=== PATIENT | female | born 1980 | race Caucasian/White ===

== ENCOUNTER 2021-11-11 13:44 | Outpatient (CLI) | payer BC, SELFPAY ==
[2021-11-11 21:36] LABS: Albumin* 4.1 g/dL (3.3-5.0)
[2021-11-11 21:37] LABS: Chloride* 107 mmol/L (96-114); Potassium* 4.3 mmol/L (3.6-5.1); Sodium* 134 mmol/L (135-149)
[2021-11-11 21:39] LABS: Aspartate Amino Transferase* 25 U/L (12-35); Bilirubin Total* 0.3 mg/dL (0.1-1.5); Carbon Dioxide* 21 mmol/L (20-32); Cholesterol* 176 mg/dL (90-199); Creatinine* 0.9 mg/dL (0.5-1.5); Estimated Glomerular Filt Rate 83 ml/min; Total Protein* 6.9 g/dL (6.0-8.3)
[2021-11-11 21:40] LABS: Alanine Aminotransferase* 24 U/L (4-35); Alkaline Phosphatase* 91 U/L (40-150); Blood Urea Nitrogen* 20 mg/dL (5-24); Calcium* 9.3 mg/dL (8.4-10.6); Glucose* 92 mg/dL (60-115); HDL Cholesterol* 42 mg/dL (>=50); LDL Cholesterol Calculated 112 mg/dL (<100); Triglycerides* 111 mg/dL (40-149)
[2021-11-13 19:15] LABS: Vitamin D, 1,25-Dihydroxy 62.1 pg/mL (19.9-79.3)
== END 2021-11-11 13:45 | disposition home or self-care (01) ==
PROVIDERS: PCP Physician Assistant Medical; Visit Provider Physician Assistant Medical
DX: F41.9 Anxiety disorder, unspecified (principal); D50.9 Iron deficiency anemia, unspecified; F32.A Depression, unspecified; Z13.6 Encounter for screening for cardiovascular disorders; Z13.29 Encounter for screening for other suspected endocrine disorder
CPT/HCPCS: 80053; 80061; 82652; 84443

== ENCOUNTER 2021-11-24 07:02 | Outpatient (CLI) | payer BC, SELFPAY ==
--- NOTE | 2021-11-24 07:15 | CRLHL7_ITS ---
For Patients: As a result of the Century Cures Act, medical imaging exams and procedure reports are released immediately into your electronic medical record. You may view this report before your referring provider. If you have questions, please contact your health care provider. CLINICAL HISTORY: EXCESSIVE AND FREQUENT MENSTRUATION TECHNIQUE: 2D leon scale and color Doppler images were acquired of the pelvis using a transvaginal approach. FINDINGS: On transvaginal imaging, the myometrium has a heterogeneous echotexture. The uterus measures 7.2 x 4.7 x 4.8 cm. Right mid intramural fibroid is present measuring 1.9 x 2.1 x 2.0 cm. The endometrial lining appears normal and measures 6 mm in thickness. The left ovary measures 2.5 x 1.3 x 2.0 cm in size and the right ovary measures 3.6 x 2.0 x 1.6 cm. The ovaries demonstrate normal arterial and venous blood flow on color Doppler analysis. There are no suspicious fluid collections within the cul-de-sac. IMPRESSION: Endometrial thickness 6 millimeters. 2.1 cm intramural fibroid. Dictated by Tomi Lee MD @ 11/24/2021 8:40:41 AM (Electronically Signed)
== END 2021-11-24 07:03 | disposition home or self-care (01) ==
LOC: US 07:03
PROVIDERS: PCP Physician Assistant Medical; Visit Provider Registered Nurse
DX: N93.9 Abnormal uterine and vaginal bleeding, unspecified (principal); R93.89 Abnormal findings on diagnostic imaging of other specified body structures; D25.1 Intramural leiomyoma of uterus
CPT/HCPCS: 76830

== ENCOUNTER 2021-12-01 09:25 | Outpatient (CLI) | payer BC, SELFPAY ==
--- NOTE | 2021-12-01 | CRLHL7_ITS ---
For Patients: As a result of the Century Cures Act, medical imaging exams and procedure reports are released immediately into your electronic medical record. You may view this report before your referring provider. If you have questions, please contact your health care provider. PLEASE SEE BILATERAL DIAGNOSTIC MAMMOGRAM OF SAME DAY. RALPH/Dictated by: Tomi Lee MD @ 12/01/2021 11:51:00 AM (Electronically Signed)
--- NOTE | 2021-12-01 09:45 | CRLHL7_ITS ---
For Patients: As a result of the Century Cures Act, medical imaging exams and procedure reports are released immediately into your electronic medical record. You may view this report before your referring provider. If you have questions, please contact your health care provider. BILATERAL DIAGNOSTIC MAMMOGRAM WITH COMPUTER-AIDED DETECTION AND TOMOSYNTHESIS CLINICAL HISTORY: LEFT breast pain. COMPARISON: None. TECHNIQUE: Digital BILATERAL mammogram in 4 projections. Computer-aided detection and tomosynthesis were used. Real-time ultrasound imaging of LEFT breast with imaging documentation. BREAST COMPOSITION: The breasts are heterogeneously dense, which may obscure small masses FINDINGS: 3D CC/MLO mammogram submitted BILATERALLY. Normal fibroglandular tissue is noted. No solid masses or architectural distortion. No adenopathy or suspicious calcifications. Targeted LEFT breast ultrasound performed in the area of concern, upper outer quadrant LEFT breast, 1 o`clock 1-8 cm from the nipple. Normal fibroglandular tissue noted. No fibrocystic change or solid masses. IMPRESSION: Normal BILATERAL mammograms and targeted LEFT breast ultrasound. No evidence of malignancy. RECOMMENDATIONS: Annual BILATERAL screening mammography. BI-RADS Category 2: Benign Results and recommendations discussed with the patient. Dictated by Tomi Lee MD @ 12/01/2021 11:51:31 AM/yobani RALPH/Dictated by: Tomi Lee MD @ 12/01/2021 11:51:00 AM (Electronically Signed)
== END 2021-12-01 09:26 | disposition home or self-care (01) ==
LOC: MAMMO 09:25
PROVIDERS: PCP Physician Assistant Medical; Visit Provider Registered Nurse
DX: N64.4 Mastodynia (principal)
CPT/HCPCS: 76642; 77066; G0279

== ENCOUNTER 2021-12-29 11:56 | Outpatient (CLI) | payer BC, SELFPAY | END 2021-12-29 11:57 | disposition home or self-care (01) | PROVIDERS: PCP Physician Assistant Medical; Visit Provider Obstetrics & Gynecology | DX: R68.82 Decreased libido (principal) | CPT/HCPCS: 84270; 84402; 84403 ==

== ENCOUNTER 2022-04-26 12:25 | Outpatient (CLI) | payer BC, SELFPAY ==
[2022-04-26 14:25] LABS: Uric Acid* 4.7 mg/dL (2.2-8.4)
[2022-04-28 02:05] LABS: Rheumatoid Factor <10 IU/mL (0-14)
== END 2022-04-26 12:26 | disposition home or self-care (01) ==
PROVIDERS: PCP Physician Assistant Medical; Visit Provider Physician Assistant Medical
DX: M25.50 Pain in unspecified joint (principal)
CPT/HCPCS: 84550; 86200; 86431; 86618

== ENCOUNTER 2022-06-24 14:08 | Outpatient (REF) | payer BC, SELFPAY ==
[2022-06-26 23:51] LABS: Complement Component 3 141 mg/dL (90-180); Complement Component 4 34 mg/dL (10-40)
[2022-06-27 12:39] LABS: Scleroderma (Scl-70) (ENA) IgG 0 AU/mL (0-40); Smith (ENA) Antibody, IgG 3 AU/mL (0-40)
== END 2022-06-24 14:09 | disposition home or self-care (01) ==
LOC: NPINS 14:08
PROVIDERS: PCP Physician Assistant Medical; Visit Provider Internal Medicine Rheumatology
DX: M13.0 Polyarthritis, unspecified (principal)
CPT/HCPCS: 86160; 86225; 86235

== ENCOUNTER 2023-02-06 13:18 | Emergency (ER) | payer BC, SELFPAY ==
[2023-02-06 13:26] VITALS: BP 138/78; PULSE 93; RESP 18; TEMP 36.6; O2SAT 97; BMI 28.2
--- NOTE | 2023-02-06 14:10 | CRLHL7_ITS ---
For Patients: As a result of the Century Cures Act, medical imaging exams and procedure reports are released immediately into your electronic medical record. You may view this report before your referring provider. If you have questions, please contact your health care provider. INDICATION: Left lower quadrant TECHNIQUE: CT abdomen and pelvis acquired with IV contrast. 89 cc of Isovue 370 contrast was administered intravenously. COMPARISON: CT abdomen and pelvis 11/20/2020 FINDINGS: The visualized portions of the lung bases are clear. The liver, spleen, pancreas and adrenal glands are unremarkable. The gallbladder is nondistended. The kidneys enhance symmetrically without hydronephrosis. The bladder is minimally distended and unremarkable. There are no dilated loops of small bowel to suggest obstruction. The appendix is normal. There is no intraperitoneal free air or fluid. Postsurgical changes periumbilical hernia repair. The bones are unremarkable. IMPRESSION: Unremarkable contrast enhanced CT of the abdomen and pelvis. No acute abnormality to explain patient`s pain. Dictated by Claudia Bradford MD @ 02/06/2023 4:04:24 PM Please note that all CT scans at this facility use dose modulation, iterative reconstruction, and/or weight-based dosing when appropriate to reduce radiation dose to as low as reasonably achievable. Dictated by: Claudia Bradford MD @ 02/06/2023 16:05:11 (Electronically Signed)
--- NOTE | 2023-02-06 14:16 | ED.GENADULT ---
HPI - General Adult General Chief complaint: Abdominal Pain Stated complaint: severe abdominal pain Time Seen by Provider: 02/06/23 14:00 Source: patient Mode of arrival: ambulatory Limitations: no limitations History of Present Illness HPI narrative: 42-year-old female with a prior history of tubal ligation, umbilical hernia repair presents the emergency department with left lower quadrant abdominal pain. This has been present for a week but significantly worse over the last 24 hours. No trauma or injury, no fever. She is very prone to constipation and has seen a GI specialist for this. She typically manages the constipation with MiraLax. She had not had a good bowel movement for about a week and therefore used increased doses of MiraLax plus also 4 tablets of Dulcolax and 2 doses of Metamucil. She did have 2 very loose bowel movements overnight but has not experienced relief. Pain is constant, sharp in the left lower quadrant area. She has had a similar pain investigated here in our emergency department [address] findings were benign. It was after that that she followed up with GI. She had an endoscopy and colonoscopy performed which did not show any significant reason for her ongoing pain issues but did remove a couple of precancerous polyps. I do specifically ask if she was told about diverticulitis and she says that she was not told that there were any signs of this. She denies a history of ovarian pathology, does report prior history of kidney stones. States that her pain currently does not feel similar to that. No dysuria, no hematuria. She is at the end of her menstrual cycle currently. Tubal ligation for contraception. Has not tried taking any pain medication to help with her symptoms. Does have nausea but no vomiting. No blood in her stools. No unusual vaginal discharge. Feels like this is different than her typical constipation pain. Past medical history notable for migraines, anxiety. Medication and notes reviewed from primary care provider. Allergies noted. Nonsmoker. ROS notable for the generalized and GI symptoms as above, otherwise denies times 12 systems. Related Data Home Medications Medication Instructions Recorded Confirmed topiramate 25 mg tablet 25 mg PO BID 12/29/21 12/31/22 rimegepant 75 mg disintegrating 75 mg PO PRN 03/30/22 12/31/22 tablet (Nurtec ODT) Previous Rx's Medication Instructions Recorded topiramate 50 mg tablet 50 mg PO BID #180 tabs 11/10/21 triamcinolone acetonide 0.1 % 1 applic topical BID #30 grams 04/15/22 topical cream alprazolam 0.25 mg tablet 0.25 mg PO .As Needed as needed 07/06/22 PRN anxiety #15 tabs venlafaxine 150 mg 150 mg PO QDAY #90 caps 08/13/22 capsule,extended release 24 hr venlafaxine 75 mg capsule,extended 75 mg PO QDAY #90 caps 08/13/22 release 24 hr albuterol sulfate 90 mcg/actuation 2 puff inhalation Q6H PRN 11/03/22 aerosol inhaler shortness of breath or wheezing #8.5 grams bupropion HCl 300 mg 24 hr tablet, 300 mg PO QAM #90 tabs 11/03/22 extended release cephalexin 500 mg capsule 500 mg PO BID #20 caps 12/31/22 fluconazole 150 mg tablet 150 mg PO Q3D 2 doses #2 tabs 01/13/23 (Diflucan) Allergies Allergy/AdvReac Type Severity Reaction Status Date / Time egg Allergy Mild Nausea Verified 02/06/23 14:50 diphtheria,pertussis AdvReac Severe Joint Pain Verified 02/06/23 14:50 (acellular),te [From Adacel(Tdap Adolesn/Adult)(PF)] seasonal Allergy Mild Sneezing, Uncoded 02/06/23 14:50 congestion PFSH PFSH Medical History History of kidney stones ?Z87.442 - Personal history of urinary calculi (ICD-10) Kidney stone ?N20.0 - Calculus of kidney (ICD-10) Surgical History History of ear, nose, and throat (ENT) surgery ?Z98.890 - Other specified postprocedural states (ICD-10) H/O umbilical hernia repair ?Z98.890 - Other specified postprocedural states (ICD-10) ?Z87.19 - Personal history of other diseases of the digestive system (ICD-10) H/O dilation and curettage ?Z98.890 - Other specified postprocedural states (ICD-10) History of colonoscopy ?Z98.890 - Other specified postprocedural states (ICD-10) Status post tubal ligation ?Z98.51 - Tubal ligation status (ICD-10) History of radiofrequency ablation (RFA) procedure for cardiac arrhythmia ?Z98.890 - Other specified postprocedural states (ICD-10) Family History Aunt Breast cancer Maternal Grandfather Colon cancer Other Skin cancer Social History Narrative: , remarried Has 6 children with first Youngest child 12 yo Current is disabled Lives with children, and his disabled brother She is politically active and organizing around rights. Smoking Status: Never smoker Non-prescribed substance use: denies use Little interest or pleasure in doing things: several days Feeling down, depressed, or hopeless: several days Exam Const: Vital Signs, click to edit/add: Vital Signs - 24 hr 02/06/23 13:26 Temperature 97.9 F Pulse Rate [Right Pulse Oximeter] 93 Respiratory Rate 18 Blood Pressure [Ri ght Upper Arm] 138/78 Pulse Oximetry 97 Oxygen Delivery Me thod Room Air Documenting provider has reviewed patient's vital signs: yes Common normals: no apparent distress General appearance: cooperative and well kempt HENMT: Common normals: normocephalic Head and scalp: normocephalic Face and sinus: normal facial exam Mouth: oral and palatal mucosa normal Throat: posterior oropharynx normal Eye: Common normals: conjunctivae normal General eye: normal appearance of both eyes Conjunctiva: conjunctiva(e) normal Neck & C-Spine: Common normals: full ROM and no lymphadenopathy Resp: Common normals: normal respiratory effort, no use of accessory muscles and clear to auscultation bilaterally Effort & inspection: able to speak in complete sentences Auscultation: clear to auscultation bilaterally Cardio: Common normals: regular rate, regular rhythm, S1 normal heart sound, S2 normal heart sound and no murmurs Rate: regular rate Rhythm: regular rhythm Heart sounds: S1 normal and S2 normal GI: Common normals: Normal to inspection, nondistended, normoactive bowel sounds present, soft to palpation, no hepatosplenomegaly and no masses Palpation: soft and no hepatosplenomegaly Other: Mildly tender to palpation of left lower quadrant but certainly no rebound tenderness or guarding. No mass. : Common normals: no CVA tenderness Bladder/kidney exam: no CVA tenderness Back & Pelvis: Common normals: no CVA tenderness Extremity: Common normals: normal to inspection, normal capillary refill and no pedal edema Neuro: Speech: speech normal Motor exam: strength 5/5 throughout Psych: Common normals: speech normal Appearance: well kempt Activity/motor behavior: appropriate eye contact Speech: normal speech Insight: insight good Judgement: judgment good Skin: Common normals: no rashes or lesions noted General skin exam: no rashes or lesions noted Course Course ED Course: Left lower quadrant pain with history of prior similar pain the worse than usual. Iced suspect constipation but cannot exclude ovarian pathology, kidney stone, diverticulitis, volvulus, obstruction or other similar pathology. Recommend Toradol and Zofran while we await findings. Basic labs, CT of the abdomen and pelvis. Consider pelvic ultrasound if inconclusive. Reevaluation(s) Time of Reevaluation #1: 16:13 Reevaluation #1: Findings reviewed with patient. Toradol did not improve her pain, gave 2 tablets of hydrocodone which she reports caused drowsiness but did not really improve her pain either. CT and lab findings reviewed with patient. These are all very reassuring. No emergent pathology is noted. Repeat examination is also very benign. I do not recommend pelvic ultrasound or further workup. I do suspect that the stimulant laxative AKA the Dulcolax worsened her symptoms. Would like for her to discontinue this. Continue the osmotic laxative as she is already taking. Counseled on Tylenol and ibuprofen for pain control as well as alarm symptoms that would warrant ED presentation. She verbalizes understanding and agreement. Vital Signs Vital signs: Initial Vital Signs Temperature 97.9 F 02/06/23 13:26 Temperature Source Temporal Artery Scan 02/06/23 13:26 Pulse Rate 93 02/06/23 13:26 Respiratory Rate 18 02/06/23 13:26 Blood Pressure 138/78 02/06/23 13:26 Blood Pressure Mean 98 02/06/23 13:26 Blood Pressure Position Sitting 02/06/23 13:26 Pulse Oximetry 97 02/06/23 13:26 Oxygen Delivery Method Room Air 02/06/23 13:26 Vital Signs Temperature 97.9 F 02/06/23 13:26 Pulse Rate 93 02/06/23 13:26 Respiratory Rate 18 02/06/23 13:26 Blood Pressure 138/78 02/06/23 13:26 Pulse Oximetry 97 02/06/23 13:26 Oxygen Delivery Method Room Air 02/06/23 13:26 Temperature 97.9 F 02/06/23 13:26 Pulse Rate 93 02/06/23 13:26 Respiratory Rate 18 02/06/23 13:26 Blood Pressure 138/78 02/06/23 13:26 Pulse Oximetry 97 02/06/23 13:26 Oxygen Delivery Method Room Air 02/06/23 13:26 Medical Decision Making Lab Data Labs: Lab Results 02/06/23 02/06/23 Range/Units 14:10 14:20 WBC 10.18 (4.50-11.00) K/uL RBC 4.50 (4.00-5.20) m/uL Hgb 13.5 (12.0-16.0) gm/dL Hct 41.4 (33.0-51.0) % MCV 92 (80-100) fL MCH 30 (26-34) pg MCHC 33 (32-36) gm/dL RDW Coeff of Didi 12.4 (11.5-15.5) % Plt Count 348 (140-440) K/uL Neut % (Auto) 63.5 (42.0-72.0) % Lymph % (Auto) 27.0 (20-44) % Banks % (Auto) 4.6 (0.0-11.0) % Eos % (Auto) 4.0 (0.0-7.0) % Baso % (Auto) 0.5 (0.0-3.0) % Neut # (Auto) 6.46 (1.7-7.0) K/uL Lymph # (Auto) 2.75 (0.90-2.90) K/uL Banks # (Auto) 0.50 (0.00-0.90) K/UL Eos # (Auto) 0.41 (0.00-0.50) K/uL Baso # (Auto) 0.05 (0.00-0.30) K/uL Abs Immat Gran (auto) 0.04 (0.00-0.30) K/uL Imm/Tot Granulo (auto) 0.4 % Sodium 139 (135-149) mmol/L Potassium 3.7 (3.6-5.1) mmol/L Chloride 109 (96-114) mmol/L Carbon Dioxide 19 L (20-32) mmol/L Anion Gap 11 (7-15) mEq/L BUN 13 (5-24) mg/dL Creatinine 0.9 (0.5-1.5) mg/dL Estimated Creat Clear 79.99 Estimated GFR 82 ml/min Glucose 89 (60-115) mg/dL Lactate 0.9 (0.5-1.9) mmol/L Calcium 9.1 (8.4-10.6) mg/dL Total Bilirubin 0.5 (0.1-1.5) mg/dL AST 31 (12-35) U/L ALT 21 (4-35) U/L Alkaline Phosphatase 84 (40-150) U/L C-Reactive Protein 1.6 H (0.5-1.0) mg/dL Total Protein 7.4 (6.0-8.3) g/dL Albumin 4.3 (3.3-5.0) g/dL Lipase 105 (23-300) U/L Urine Color Yellow (Yellow) Urine Appearance Clear (Clear) Urine pH 6.0 (5.0-8.5) Ur Specific [place] >= 1.030 (1.000-1.030) Urine Protein Negative (Negative) Urine Glucose (UA) Negative (Negative) Urine Ketones Negative (Negative) Urine Blood Trace-intact A (Negative) Urine Nitrite Negative (Negative) Urine Bilirubin Negative (Negative) Urine Urobilinogen 0.2 (0.2-1.0) Ur Leukocyte Esterase Negative (Negative) Urine RBC 0-2 (0-2) Urine WBC 0-2 (0-5) Ur Squamous Epith Cells Few (None-Few) Urine Bacteria Few A (None) Urine HCG, Qual Negative (Negative) Discharge Plan Discharge Clinical Impression: Nonspecific abdominal pain Patient Disposition: Home w/ Parent or Adult Condition: Stable Instructions: Chronic Abdominal Pain (DC) Additional Instructions: As we discussed, there are thankfully no signs of any emergent condition today. No obstructing kidney stone, no diverticulitis, no ovarian cyst, no intestinal obstruction, no other serious pathology. The labs and CT scan are very reassuring. I do think that the stimulant laxative, specifically the Dulcolax has worsened your pain. Thankfully since her bowels have moved, you do not need to continue that medication. I do recommend that you continue your MiraLax as you are currently taking. I would recommend that you make a follow-up appointment with your GI specialist to further discuss medications for your irritable bowel. If you start having large amounts of bloody stools, high fevers and or significant worsening in your pain, please come back to the emergency department. It is completely safe to continue Tylenol 1000 mg every 6 hours and/or ibuprofen 600 mg every 6 hours as needed for your pain also. Prescriptions: No Action Nurtec ODT 75 mg tablet,disintegrating 75 mg PO PRN Patient Comments: TAKE 1 TABLET BY MOUTH AT ONSET OF MIGRAINE. MAX DOSE OF 1 TABLET PER DAY triamcinolone acetonide 0.1 % cream 1 applic topical BID Qty: 30 1RF Rx Instructions: Apply topically to affected area twice daily as needed cephalexin 500 mg capsule 500 mg PO BID Qty: 20 0RF topiramate 25 mg tablet 25 mg PO BID albuterol sulfate 90 mcg/actuation HFA aerosol inhaler 2 puff inhalation Q6H PRN (Reason: shortness of breath or wheezing) Qty: 8.5 3RF bupropion HCl 300 mg tablet extended release 24 hr 300 mg PO QAM Qty: 90 3RF topiramate 50 mg tablet 50 mg PO BID Qty: 180 1RF alprazolam 0.25 mg tablet 0.25 mg PO .As Needed as needed PRN (Reason: anxiety) Qty: 15 0RF venlafaxine 150 mg capsule,extended release 24hr 150 mg PO QDAY Qty: 90 2RF Rx Instructions: Take along with 75 mg capsule for a total of 225 mg venlafaxine 75 mg capsule,extended release 24hr 75 mg PO QDAY Qty: 90 2RF Rx Instructions: Take along with Venlafaxine 150 mg capsule for a total of 225 mg fluconazole [Diflucan] 150 mg tablet 150 mg PO Q3D Qty: 2 0RF Follow Up/Referrals: Donnie Flores, SARITAC [Primary Care Provider] - Stand Alone Forms: [employer] Info Instructions
[2023-02-06 14:23] LABS: Appearance Urine Clear (Clear); Bilirubin Urine Negative (Negative); Blood Urine Trace-intact (Negative); Color Urine Yellow (Yellow); Glucose Urine Negative (Negative); Ketones Urine Negative (Negative); Leukocyte Esterase Urine Negative (Negative); Nitrite Urine Negative (Negative); Protein Urine Negative (Negative); Specific Gravity Urine >= 1.030 (1.000-1.030); Urobilinogen Urine 0.2 (0.2-1.0)
[2023-02-06] MEDS: ONDANSETRON 2 MG/ML inj 4 MG IVP (14:23)
[2023-02-06 14:24] LABS: Ur HCG Qualitative* Negative (Negative)
[2023-02-06] MEDS: KETOROLAC 15 MG/ML inj IVP (14:24)
[2023-02-06 14:30] LABS: Bacteria Urine Few; RBC Urine 0-2 (0-2); Squamous Epithelial Cell Urine Few (None-Few); WBC Urine 0-2 (0-5)
[2023-02-06 14:37] LABS: Lactate* 0.9 mmol/L (0.5-1.9)
[2023-02-06 14:42] LABS: Basophils Absolute Auto 0.05 K/uL (0.00-0.30); Basophils Percent Auto 0.5 % (0.0-3.0); Eosinophils Absolute Auto 0.41 K/uL (0.00-0.50); Hematocrit 41.4 % (33.0-51.0); Hemoglobin* 13.5 gm/dL (12.0-16.0); Immature Granulocytes Abs Auto 0.04 K/uL (0.00-0.30); Immature Granulocytes Pct Auto 0.4 %; Lymphocytes Absolute Auto 2.75 K/uL (0.90-2.90); Mean Corpuscular HGB Conc 33 gm/dL (32-36); Mean Corpuscular Hemoglobin 30 pg (26-34); Mean Corpuscular Volume 92 fL (80-100); Monocytes Percent Auto 4.6 % (0.0-11.0); Neutrophils Absolute Auto 6.46 K/uL (1.7-7.0); Neutrophils Percent Auto 63.5 % (42.0-72.0); Platelet Count* 348 K/uL (140-440); RDW Coefficient of Variation % 12.4 % (11.5-15.5); White Blood Count* 10.18 K/uL (4.50-11.00)
[2023-02-06 14:43] LABS: Slide Review Reflex No
[2023-02-06 15:05] LABS: Albumin* 4.3 g/dL (3.3-5.0); Chloride* 109 mmol/L (96-114); Potassium* 3.7 mmol/L (3.6-5.1); Sodium* 139 mmol/L (135-149)
[2023-02-06 15:07] LABS: Bilirubin Total* 0.5 mg/dL (0.1-1.5); Creatinine* 0.9 mg/dL (0.5-1.5); Est. Creatinine Clearance* 79.99; Estimated Glomerular Filt Rate 82 ml/min
[2023-02-06 15:08] LABS: Alanine Aminotransferase* 21 U/L (4-35); Alkaline Phosphatase* 84 U/L (40-150); Anion Gap 11 mEq/L (7-15); Aspartate Amino Transferase* 31 U/L (12-35); Blood Urea Nitrogen* 13 mg/dL (5-24); Carbon Dioxide* 19 mmol/L (20-32); Glucose* 89 mg/dL (60-115); Lipase* 105 U/L (23-300); Total Protein* 7.4 g/dL (6.0-8.3)
[2023-02-06 15:09] LABS: Calcium* 9.1 mg/dL (8.4-10.6)
[2023-02-06 15:11] LABS: C Reactive Protein* 1.6 mg/dL (0.5-1.0)
[2023-02-06] MEDS: HYDROCODONE-ACETAMIN 5-325 MG 1 TAB 2 TAB PO (15:30)
[2023-02-06 16:15] VITALS: BP 119/79; PULSE 79; RESP 16; TEMP 36.6
[2023-02-06 16:19] VITALS: BP 119/79; PULSE 79; RESP 16; O2SAT 99
== END 2023-02-06 16:15 | disposition home or self-care (01) ==
PROVIDERS: Emergency Provider Family Medicine; PCP Physician Assistant Medical
DX: R10.9 Unspecified abdominal pain (principal)
CPT/HCPCS: 36415; 74177; 80053; 81001; 81025; 83605; 83690; 85025; 86140; 87086; 96374; 96375; 99284; 99285; A9270; J1885; J2405; Q9967

== ENCOUNTER 2023-03-07 11:44 | Outpatient (CLI) | payer BC, SELFPAY | END 2023-03-07 11:45 | disposition home or self-care (01) | LOC: NFLDREF 03-11 15:58 | PROVIDERS: PCP Physician Assistant Medical; Referring Provider Physician Assistant Medical; Visit Provider Obstetrics & Gynecology | DX: N92.1 Excessive and frequent menstruation with irregular cycle (principal); R23.2 Flushing | CPT/HCPCS: 83001; 84443 ==

== ENCOUNTER 2023-03-21 11:01 | Outpatient (CLI) | payer BC, SELFPAY ==
--- NOTE | 2023-03-21 11:00 | CRLHL7_ITS ---
For Patients: As a result of the Century Cures Act, medical imaging exams and procedure reports are released immediately into your electronic medical record. You may view this report before your referring provider. If you have questions, please contact your health care provider. INDICATION: MENORRHAGIA COMPARISON: 11/24/2021 TECHNIQUE: 2D leon scale and color Doppler images were acquired of the pelvis using a transvaginal approach. FINDINGS: Right mid intrauterine fibroid is present measuring 2.0 x 1.8 x 1.8 cm. Uterus measures 8.2 cm in length by 4.9 cm in AP diameter by 5.5 cm in transverse dimension. The myometrium has a heterogeneous echotexture. The endometrial lining measures 16 mm in thickness. The right ovary measures 4.2 x 1.8 x 1.8 cm in size and the left ovary is not visualized. The right ovary demonstrates normal arterial and venous blood flow on color Doppler analysis. Complex right ovarian cyst is present measuring 2.1 x 1.6 x 1.7 cm. Mild pelvic free fluid noted. IMPRESSION: Endometrial thickness 16 millimeters. No endometrial fluid. Right-sided intramural fibroid is similar measuring 2 cm. Collapsing hemorrhagic right ovarian cyst measuring 2.1 cm. Dictated by Tomi Lee MD @ 03/24/2023 12:04:23 PM (Electronically Signed)
== END 2023-03-21 11:02 | disposition home or self-care (01) ==
LOC: US 11:01
PROVIDERS: PCP Physician Assistant Medical; Visit Provider Obstetrics & Gynecology
DX: N92.0 Excessive and frequent menstruation with regular cycle (principal); R93.89 Abnormal findings on diagnostic imaging of other specified body structures; D25.1 Intramural leiomyoma of uterus; N83.201 Unspecified ovarian cyst, right side; N92.1 Excessive and frequent menstruation with irregular cycle
CPT/HCPCS: 76830; 76856

== ENCOUNTER 2023-06-01 07:28 | Day surgery (SDC) | payer BC, SELFPAY ==
[2023-06-01] VITALS (26 sets, daily range): BP systolic 92–127; BP diastolic 46–80; PULSE 74–107; RESP 12–20; TEMP 35.8–37; O2SAT 93–949; BMI 29.6
[2023-06-01] MEDS: LACTATED RINGERS 1000 ML 1,000 ML 100 ML IV (07:54)
[2023-06-01] MEDS: SODIUM CHLORIDE 0.9 % (FLUSH) 10 ML SYRINGE IVF (07:54)
[2023-06-01 08:35] LABS: Hemoglobin* 12.4 gm/dL (12.0-16.0)
--- NOTE | 2023-06-01 09:03 | W.PM.H&PU ---
History & Physical Update History & Physical Update H&P Reviewed and patient assessed: No changes noted H&P Updates: Preoperative diagnosis: Pelvic pain, menorrhagia Planned procedures: diagnostic laparoscopy, total laparoscopic hysterectomy with bilateral salpingectomy, possible total vaginal hysterectomy with bilateral salpingectomy, cystoscopy Labs: hemoglobin 12.4 Creatinine and HCG pending
[2023-06-01 09:25] LABS: Ur HCG Qualitative* Negative (Negative)
[2023-06-01] MEDS: CEFAZOLIN 2 GM INJ IVP (09:27)
--- NOTE | 2023-06-01 10:00 | P.NB_ITS ---
Nerve Block Nerve Block Time Seen by Provider: 09:13 Date Seen: 06/01/23 Type of block requested by surgeon for post-operative analgesia: TAP Side: bilateral Time out performed: Yes Verification of patient name: Yes Verification of date of : Yes Site marking: site marked Name of person performing procedure: Juice Continuous monitoring Was continuous monitoring of O2 sat, B/P, director learning services, recorded every 15 minutes?: Yes Procedure Checklist: sterile prep, needles and gloves Ultrasound guided. Images saved: Yes Medications given in 5ml increments after negative aspiration: Marcaine %: 0.25 mL: 30 Needle gauge: 20 and Exparel mL: 10 Patient tolerated procedure well: Yes Additional comments: Needle noted between internal oblique and transversus abdominus. Local spread visualized Block Charges Block Charge (with Pro Fee): TAP Bilateral Use of Ultrasound Machine for Block: Yes- US Guidance/pain block
--- NOTE | 2023-06-01 10:00 | W.ANESCHARGE ---
Anesthesia Charges Start Date/Time Anesthesia Start Date: 06/01/23 Anesthesia Start Time: 09:06 Stop Date/Time Anesthesia Stop Date: 06/01/23 Anesthesia Stop Time: 12:17
--- NOTE | 2023-06-01 10:37 | SUR.OPER ---
Call placed to , Michael, at approximately 1037am update given, procedure is going well.
--- NOTE | 2023-06-01 12:17 | P.GYNPRC_ITS ---
Procedure Note Date of procedure: 06/01/23 Pre-op diagnosis: Menorrhagia, pelvic pain Post-op diagnosis: other (Menorrhagia, pelvic pain, intra-abdominal adhesions) Procedure: Total laparoscopic hysterectomy with bilateral salpingectomy and lysis of adhesions Cystoscopy Anesthesia: GETA Complications: None Surgeon: Judy Person MD Cleaning Supervisor: Laura Baeza Estimated blood loss (mL): 25 IV fluids (mL): 1,500 Urine Output (mL): 200 Pathology: specimen obtained, sent to pathology (Uterus, cervix, bilateral fallopian tubes.) Condition: stable Disposition: PACU Findings: 1. Upon pelvic exam under anesthesia, the cervix and vagina were normal in appearance. Uterus was mobile and anteverted, of normal size and texture. There were no palpable adnexal masses. 2. Upon laparoscopy, survey of the upper abdomen revealed a normal appearance to the inferior edge of the liver, gallbladder and stomach. There was a patch of omental adhesions to the anterior abdominal wall, beneath the previous mesh placement. Bowels were grossly normal appearance. Appendix was not visualized. Survey of the pelvis revealed normal appearance to the uterus. Bilateral tubes and ovaries were normal in appearance. There were Filshie clips noted in the pelvis adjacent to each fallopian tube. The cul-de-sac and bladder reflection were normal in appearance. Procedure Description: Patient was taken to the operating room with IV running. She received cefazolin in preoperative prophylaxis. She was positioned in dorsal lithotomy position with her legs fully supported in Yellofin stirrups. General anesthesia was administered. She was prepped and draped in the usual sterile fashion. Pelvic exam under anesthesia was performed for the above-noted findings. Speculum was inserted. Cervix visualized. Initially, a Hulka uterine manipulator was inserted through the cervix and affixed to the anterior lip. At beginning of procedure, I was uncertain if I would be able to complete the procedure laparoscopically given the size and location of the mesh. Vasquez catheter was placed. Patient's legs were then placed in neutral position. Attention was turned to patient's abdomen. The left upper quadrant was selected for initial laparoscopic entry site. An orogastric tube was placed by Anesthesia. 5 mm incision was made in the midclavicular line approximately 5 cm beneath the infracostal margin. A 5 mm infraumbilical incision was made with a scalpel and carried down to the underlying layer of fascia with the hemostat. 5 mm camera was placed within the 5 mm Fios Kii trocar, and advanced under direct visualization through the anterior abdominal wall into the peritoneal cavity, while tenting up the anterior abdominal wall. The trocar was removed. The balloon was inflated, holding the port in place. Pneumoperitoneum was achieved. Survey of the abdomen and pelvis revealed the above-noted findings. The omental adhesions to the anterior abdominal wall were initially obscuring the view of the pelvis from the port. Using this port, we were able to place the right and left lower quadrant ports under direct visualization. The 1st of these was placed in the patient's right lower quadrant, just superior medial to the right ASIS. A 5 mm port was placed at this site. The next port was placed in the patient's left lower quadrant, just superior medial to the left ASIS. An 11 mm incision was made at this site. Each of these were performed under direct visualization and without complication. Finally, a 5 mm port was placed a hand's breadth superior to and slightly medial to the LLQ port. The balloon on the tip of each port was inflated, holding them in place. Lysis of omental adhesions was performed through these 3 ports using the Thunderbeat device. All omental adhesions were released, allowing clear visualization of the pelvis from the left upper quadrant port. Ultimately, after a successful laparoscopic approach seemed achievable, the Hulka manipulator was removed. Cervix was dilated with Hegar dilators to accommodate the VCare uterine manipulator. A large-sized colpotomizer cup was selected. The tip of the uterine manipulator was inserted through the cervix into the uterine cavity and the balloon was inflated. The speculum was removed. The colpotomy cup was advanced, surrounding the cervix, and the proximal occluder was moved up along the shaft of the VCare and fixed in place. Attention was first turned to the left fallopian tube, which was divided from the mesosalpinx, using the Thunderbeat bipolar cautery device, proceeding laterally to medially, and the tube was amputated at the left uterine cornua. The Filshie clip was lodged in the mesosalpinx, and this was removed as well. This was removed through the port site and sent to pathology. This procedure was repeated on the patient's right side, and the right fallopian tube was also amputated at the cornua and removed from the patient's abdomen. This was also sent to pathology for further analysis. The left round ligament was cauterized and transected with the Thunderbeat device. The utero-ovarian ligament was cauterized and transected, and the remnants of the right broad ligament were cauterized and transected between these two structures. The bladder flap was created on the patient's left side, moving laterally to medially. The left uterine artery was cauterized and transected with the Thunderbeat device. Using the colpotomizer cup as a guide, the peritoneum and underlying stroma was dissected off the anticipated site of colpotomy over the posterior vaginal fornix. Attention was then turned to the right side of the uterus, where the right round ligament was cauterized and transected with the Thunderbeat device. The right utero-ovarian ligament was cauterized and transected, and the remnants of the right round ligament were cauterized and transected between these two structures. The bladder flap was created on the patient's right side, and dissection was carried laterally to medially, meeting the dissection where it had left off from the patient's right side. The right uterine artery was cauterized and transected with the Thunderbeat device. The bladder reflection was moved well below the colpotomizer cup anteriorly. The vaginal fornix was then entered anteriorly with the monopolar paddle, using the colpotomizer cup as a guide. This device was moved along the circumference of the colpotomizer cup, until the uterus and cervix were freed from their attachments to the pelvis. The uterus was pulled into the patient's vagina, maintaining the pneumoperitoneum. A 2 0 V lock suture was inserted through the left lower quadrant port. Using laparoscopic needle drivers, the vaginal cuff was closed in a running fashion, incorporating the distal most aspects of the uterosacral ligaments bilaterally into the closure. Closure proceeded from right to left, and then one additional stitch were placed moving more medially to assure that the closure remained intact. Suture was cut. Ports were left in place but all instruments were removed and pneumoperitoneum was released. Patient's legs were placed back in lithotomy position. The uterus was removed from the vagina and was sent to pathology for further analysis. Speculum exam was performed, showing an intact cuff with no obvious active bleeding. The Vasquez catheter was removed from the bladder, and the cystoscope was assembled with saline inflow, outflow, and light cord in place. The patient was given IV methylene blue prior to the cystoscopy. Cystoscope was advanced through the urethra into the bladder, and survey of the mucosa revealed a normal appearance. The bladder dome was intact. Bilateral ureteral jets were noted. Cystoscope was removed and Vasquez catheter replaced. Patient's legs were again placed in neutral position. Insufflator was reattached to the port and pneumoperitoneum again achieved. Survey of the pelvis revealed hemostasis. The 11 mm Fios Kii port in the left lower quadrant was removed after balloon on the port was deflated. The Rene-Sotero laparoscopic closure device was inserted through this port. With the help of this device, the fascia was closed with a single suture of 0-Vicryl. Procedure was deemed complete. The balloons of all remaining port sites were deflated, and all ports were removed after pneumoperitoneum was released. The skin of each port site was closed in a subcuticular fashion with 4 0 Monocryl. Surgical glue was applied above this. Patient tolerated procedure well and was taken to recovery area in stable condition.
--- NOTE | 2023-06-01 12:19 | W.ANESCHARGE ---
Anesthesia Charges Start Date/Time Anesthesia Start Date: 06/01/23 Anesthesia Start Time: 09:06 Stop Date/Time Anesthesia Stop Date: 06/01/23 Anesthesia Stop Time: 12:17
[2023-06-01] MEDS: LACTATED RINGERS 1000 ML 1,000 ML 200 ML IV (12:44)
--- NOTE | 2023-06-01 12:47 | SUR.OPER ---
Per patients request and MD approval, specimen was kept at bedside in saline, until patient was able to take photos of the specimen. The specimen was then taken down to the lab.
--- NOTE | 2023-06-01 13:24 | SUR.PHASEI ---
THE UTERUS SPECIMEN IS ON THE MED/SURG FLOOR W/ THE PT, PER RENETTA TENORIO MD. SURGEON IS TAKING PICTURES W/ THE PT. AND HER EXCISED UTERUS. DR. TENORIO IS RESPONSIBLE FOR THE SPECIMEN GETTING TO THE LAB.
[2023-06-01] MEDS: MORPHINE 2 MG/ML inj IVP ×2 (14:17→15:31)
[2023-06-01] MEDS: ONDANSETRON 2 MG/ML inj 4 MG IVP (14:22)
[2023-06-01] MEDS: SIMETHICONE 80 MG TAB.CHEW 160 MG PO ×2 (16:05→21:21)
[2023-06-01] MEDS: OXYCODONE 5 MG TABLET PO ×2 (16:06→21:20)
[2023-06-01] MEDS: KETOROLAC 15 MG/ML inj IVP (18:28)
[2023-06-01] MEDS: NORTRIPTYLINE 10 MG CAPSULE PO (21:22)
[2023-06-01] MEDS: TOPIRAMATE 50 MG TABLET 75 MG PO (21:22)
[2023-06-02] VITALS: BP 109/68; PULSE 80; RESP 16; TEMP 36.7; O2SAT 94
[2023-06-02] MEDS: KETOROLAC 15 MG/ML inj IVP ×3 (00:03→11:33)
[2023-06-02 03:30] VITALS: BP 113/64; PULSE 78; RESP 16; TEMP 36.8; O2SAT 99
[2023-06-02] MEDS: OXYCODONE 5 MG TABLET PO ×3 (03:40→12:12)
[2023-06-02] MEDS: SODIUM CHLORIDE 0.9 % (FLUSH) 10 ML SYRINGE 5 ML IVF (06:04)
[2023-06-02 06:11] LABS: Hemoglobin* 11.1 gm/dL (12.0-16.0)
[2023-06-02 06:31] LABS: Estimated Glomerular Filt Rate 73 ml/min
--- NOTE | 2023-06-02 06:57 | PC.NURSE ---
nurse note: bladder backfilled; pt tolerated 250ml. kurtz pulled with 200ml urine measured, plus missed urine in the toilet.
[2023-06-02 07:00] VITALS: BP 109/68; PULSE 80; RESP 20; TEMP 36.9; O2SAT 99
[2023-06-02] MEDS: TOPIRAMATE 50 MG TABLET 75 MG PO (08:41)
[2023-06-02] MEDS: VENLAFAXINE ER 75 MG CAPSULE 225 MG PO (08:41)
[2023-06-02] MEDS: buPROPion XL 150 MG TABLET 300 MG PO (08:41)
--- NOTE | 2023-06-02 08:50 | PM.GYNDS1 ---
DS: Providers Provider Date Seen: 06/02/23 Primary care physician: Donnie Flores PA-C Admitting Clinician: Judy Person MD Attending Physician on discharge: Judy Person MD Date of Discharge: 06/02/23 DS: Diagnosis Discharge Diagnosis (1) S/P laparoscopic hysterectomy: Status: Acute Problem details: with bilateral salpingectomy, lysis of adhesions, and cystoscopy (2) S/P laparoscopy with lysis of adhesions: Status: Acute MENTAL HEALTH AIDE-Discharge Summary Hospital Course Hospital Course Narrative: Patient is a 42 year old woman admitted on 06/01/2023 for total laparoscopic hysterectomy with bilateral salpingectomy and cystoscopy. Indication for surgery: Pelvic pain, menorrhagia. Intraoperative findings were notable for intra-abdominal omental adhesions to the periumbilical region. There was no evidence of endometriosis. There were Filshie clips associated with each tube. Otherwise, uterus, tubes, and ovaries were normal appearance. Cystoscopy was also normal. She had an uncomplicated surgery. Postoperative course has been uneventful. Vitals have been stable. She has remained afebrile. Today, on postoperative day 1, she reports some difficulty with pain control. She last took oxycodone several hours ago. She has been able to ambulate Without difficulty. She is tolerating regular diet. Vasquez catheter has been removed, and she is voiding without difficulty after voiding trial. Later in the morning, she reports adequate pain control. Time Spent with Patient Time attestation: Total time spent providing and/or coordinating discharge services: Time spent: Less than 30 minutes MENTAL HEALTH AIDE - Exam Physical Exam: Vital signs: Temp Pulse Resp BP Pulse Ox O2 Del Method O2 Flow Rate 98.2 F 78 16 113/64 99 Room Air 1 06/02/23 03:30 06/02/23 03:30 06/02/23 03:30 06/02/23 03:30 06/02/23 03:30 06/02/23 03:30 06/01/23 14:45 Narrative: General: Pleasant, no acute distress Heart: Regular rate and rhythm, no murmur or gallop Lungs: Clear to auscultation bilaterally Abdomen: Laparoscopic incisions clean / dry / intact, NABS in all 4 quadrants, soft, no distention, nontender, no rebound or guarding Lower extremities: No edema or erythema MENTAL HEALTH AIDE - DS: Data Data Completed and Pending Labs on day of discharge: Labs from last 24 hours 06/02/23 06/01/23 06/01/23 05:45 08:26 07:33 Hgb 11.1 L Creatinine 1.0 Estimated Creat Clear 72.00 Estimated GFR 73 Urine HCG, Qual Negative Blood Type A Positive Antibody Screen NEGATIVE Procedures Procedures: Procedures Operation Date: 06/01/23 09:05 Actual Procedure Side Surgeon p M/S - Diagnostic Laparoscopy, Total Laparoscopic Hysterectomy, Bilateral Salpingectomy, lysis of adhesions Judy Person MD Complications: none Discharge Plan Discharge Disposition: Home, Self-Care Discharging Surgeon: Judy Person Follow-Up Appointment: 2 [address] Person Prescriptions: New ibuprofen 600 mg Tablet 600 mg PO Q6H Qty: 0 0RF oxycodone 5 mg Tablet 5 - 10 mg PO Q4H PRN (Reason: Moderate Pain) Qty: 20 0RF Continued Nurtec ODT 75 mg tablet,disintegrating 75 mg PO DAILY PRN Patient Comments: TAKE 1 TABLET BY MOUTH AT ONSET OF MIGRAINE. MAX DOSE OF 1 TABLET PER DAY triamcinolone acetonide 0.1 % cream 1 applic topical BID Qty: 30 1RF Rx Instructions: Apply topically to affected area twice daily as needed lubiprostone [Amitiza] 24 mcg capsule 24 mcg PO QDAY albuterol sulfate 90 mcg/actuation HFA aerosol inhaler 2 puff inhalation Q6H PRN (Reason: shortness of breath or wheezing) Qty: 8.5 3RF bupropion HCl 300 mg tablet extended release 24 hr 300 mg PO QAM Qty: 90 3RF venlafaxine 75 mg capsule,extended release 24hr 75 mg PO DAILY Rx Instructions: Take along with Venlafaxine 150 mg capsule for a total of 225 mg venlafaxine 150 mg capsule,extended release 24hr 150 mg PO DAILY Rx Instructions: Take along with 75 mg capsule for a total of 225 mg topiramate 25 mg tablet 25 mg PO BID alprazolam 0.25 mg tablet 0.25 mg PO DAILY PRN (Reason: anxiety) topiramate 50 mg tablet 50 mg PO BID nortriptyline 10 mg capsule 10 mg PO HS Activity Detail: Nothing per vagina. No lifting greater than 20 lbs for 4 weeks. Discharge Diet: Regular Patient Instructions: Ibuprofen (By mouth), Oxycodone, Rapid Release (By mouth), Laparoscopic Hysterectomy (DC) Forms: Work/School Release Follow-up: Judy Person MD [Staff Physician] - 06/17/23 9:00 am ([facility] for 2 week follow-up 2nd appt Tuesday, July 18 @10am) Donnie Flores PACurtC [Primary Care Provider] - Discharge Orders: Discharge Order (Routine); Ordered 06/02/23 Ordered By: Judy Person
[2023-06-02] MEDS: CALCIUM CARBONATE 500 MG CHEW PO (08:51)
--- NOTE | 2023-06-02 13:20 | PC.NURSE ---
Discharge - Pt alert, oriented, cooperative. Up independently in her room. Continent of bowel and bladder, reportedly passing flatus. Tolerating RA, regular diet, fluids. Pt reported pain in abdomen as 6/10, managed with medication in MAR with verbalized improvement. Lap site dressings CDI x 4, IV removed with catheter intact. Discharge education given with verbalized understanding, paperwork signed. Pt d/c to home with spouse via wheelchair at approximately 1230.
== END 2023-06-02 12:30 | disposition home or self-care (01) ==
LOC: OR 07:28 → MEDSURG 07:31
PROVIDERS: PCP Physician Assistant Medical; Visit Provider Obstetrics & Gynecology
PROC: 0UT94ZZ Resection of Uterus, Percutaneous Endoscopic Approach (ICD-10-PCS; CPT 58571; principal; 2023-06-01 08:45)
DX: N92.0 Excessive and frequent menstruation with regular cycle (principal); R10.2 Pelvic and perineal pain; D25.1 Intramural leiomyoma of uterus; K66.0 Peritoneal adhesions (postprocedural) (postinfection); G89.18 Other acute postprocedural pain
CPT/HCPCS: 58571; 00840; 36415; 64488; 76942; 81025; 82565; 85018; 86850; 86900; 86901; 88307; A9270; C9290; J0330; J0665; J0690; J1100; J1200; J1630; J1885; J2270; J2371; J2405; J2704; J3010; J3475; J3490; J7120

== ENCOUNTER 2023-07-19 11:28 | Outpatient (CLI) | payer BC, SELFPAY | END 2023-07-19 11:29 | disposition home or self-care (01) | LOC: NFLDREF 11:29 | PROVIDERS: PCP Physician Assistant Medical; Visit Provider Obstetrics & Gynecology | DX: R10.2 Pelvic and perineal pain (principal) | CPT/HCPCS: 87086 ==

== ENCOUNTER 2023-09-14 10:21 | Outpatient (CLI) | payer BC, SELFPAY | END 2023-09-14 10:22 | disposition home or self-care (01) | PROVIDERS: PCP Physician Assistant Medical; Visit Provider Obstetrics & Gynecology | DX: R68.82 Decreased libido (principal) | CPT/HCPCS: 84270; 84402; 84403; 84443 ==

== ENCOUNTER 2023-11-13 16:43 | Emergency (ER) | payer BC, SELFPAY ==
[2023-11-13 17:00] VITALS: BP 136/71; PULSE 94; RESP 20; TEMP 36.6; O2SAT 99; BMI 29.0
--- NOTE | 2023-11-13 17:22 | CRLHL7_ITS ---
For Patients: As a result of the Century Cures Act, medical imaging exams and procedure reports are released immediately into your electronic medical record. You may view this report before your referring provider. If you have questions, please contact your health care provider. INDICATION: Low back pain. TECHNIQUE: Two views lumbar spine. IMPRESSION : Slight leftward curve centered at thoracolumbar junction could be positional. Correlate clinically. Disc heights maintained. No fracture or bone lesion. Five lumbar type vertebra. Multiple anchors over the central abdomen on the AP view suggest prior hernia repair. Moderate volume of formed stool. Dictated by Devante Friedman MD @ 11/13/2023 6:30:58 PM (Electronically Signed)
--- NOTE | 2023-11-13 18:18 | ED.GENADULT ---
HPI - General Adult General Chief complaint: Back Injury/Pain Stated complaint: back injury Time Seen by Provider: 11/13/23 16:44 Source: patient Mode of arrival: ambulatory Limitations: no limitations History of Present Illness HPI narrative: 43-year-old female coming in today complaining of back pain radiating down her left leg. Patient states that 2 days ago she was putting best together and went to lift it when all of a sudden she had sharp low back pain. Over the last 2 days the pain has started radiating down her leg. She denies any loss of bowel or bladder function. She states that the pain radiates all the way down her toes and makes her toes feel tingly. The she denies any footdrop or difficulty walking because of tripping. Bending over does not make the pain better. She denies any fevers or chills. She has pain does make her feel nauseated and she vomited x1. She denies any diarrhea. Related Data Home Medications ?Medication ?Instructions ?Recorded ?Confirmed rimegepant 75 mg disintegrating 75 mg PO DAILY PRN 03/30/22 11/07/23 tablet (Nurtec ODT) nortriptyline 10 mg capsule 10 mg PO HS 02/11/23 11/07/23 alprazolam 0.25 mg tablet 0.25 mg PO DAILY PRN anxiety 06/01/23 11/07/23 venlafaxine 150 mg 150 mg PO DAILY 06/01/23 11/07/23 capsule,extended release 24 hr venlafaxine 75 mg capsule,extended 75 mg PO DAILY 06/01/23 11/07/23 release 24 hr bupropion HCl 300 mg 24 hr tablet, 450 mg PO QAM 06/17/23 11/07/23 extended release topiramate 25 mg tablet 100 mg PO BID 06/17/23 11/07/23 linaclotide 145 mcg capsule 145 mcg PO QAM 10/17/23 11/07/23 (Linzess) Previous Rx's ?Medication ?Instructions ?Recorded triamcinolone acetonide 0.1 % 1 applic topical BID #30 grams 04/15/22 topical cream albuterol sulfate 90 mcg/actuation 2 puff inhalation Q6H PRN 11/03/22 aerosol inhaler shortness of breath or wheezing #8.5 grams ibuprofen 600 mg tablet 600 mg PO Q6H #0 tabs 06/02/23 prednisone 20 mg tablet 20 mg PO DIRECTED 9 days #18 11/13/23 tabs Allergies Allergy/AdvReac Type Severity Reaction Status Date / Time egg Allergy Mild Nausea Verified 11/07/23 08:10 diphtheria,pertussis AdvReac Severe Joint Pain Verified 11/07/23 08:10 (acellular),te [From Adacel(Tdap Adolesn/Adult)(PF)] Review of Systems Status of ROS: Reports: 10 or more systems reviewed and unremarkable except as noted in History and below PFSH PFSH Medical History Iron deficiency anemia ?D50.9 - Iron deficiency anemia, unspecified (ICD-10) Menorrhagia with irregular cycle ?N92.1 - Excessive and frequent menstruation with irregular cycle (ICD-10) DIAMOND III (cervical intraepithelial neoplasia grade III) with severe dysplasia ?D06.9 - Carcinoma in situ of cervix, unspecified (ICD-10) LLQ pain ?R10.32 - Left lower quadrant pain (ICD-10) Wheezing ?R06.2 - Wheezing (ICD-10) History of kidney stones ?Z87.442 - Personal history of urinary calculi (ICD-10) Kidney stone ?N20.0 - Calculus of kidney (ICD-10) Surgical History S/P laparoscopic hysterectomy ?Z90.710 - Acquired absence of both cervix and uterus (ICD-10) S/P laparoscopy with lysis of adhesions ?Z98.890 - Other specified postprocedural states (ICD-10) History of ear, nose, and throat (ENT) surgery ?Z98.890 - Other specified postprocedural states (ICD-10) H/O umbilical hernia repair ?Z98.890 - Other specified postprocedural states (ICD-10) ?Z87.19 - Personal history of other diseases of the digestive system (ICD-10) H/O dilation and curettage ?Z98.890 - Other specified postprocedural states (ICD-10) History of colonoscopy ?Z98.890 - Other specified postprocedural states (ICD-10) Status post tubal ligation ?Z98.51 - Tubal ligation status (ICD-10) History of radiofrequency ablation (RFA) procedure for cardiac arrhythmia ?Z98.890 - Other specified postprocedural states (ICD-10) Family History Aunt Breast cancer Maternal Grandfather Colon cancer Other Skin cancer Social History Narrative: , remarried Has 6 children with first Youngest child 12 yo Current is disabled Lives with children, and his disabled brother She is politically active and organizing around rights. What is your current living situation?: I presently have a place to live In the past 12 months, utilities in danger of being shut off: no In past 12 months, lack of transportation kept you from medical appts, meetings, work, or getting things needed for daily living: no In the past 12 mos, have been you worried that your food would run out before you had money to buy more?: never true In the past 12 mos, the food you bought just didn't last and you didn't have money to buy more?: never true Smoking Status: Never smoker How often do you have a drink containing alcohol: monthly or less How many standard drinks containing alcohol do you have on a typical day: 1 or 2 How often do you have six or more drinks on one occasion: Never AUDIT-C Alcohol total score: 1 Non-prescribed substance use: denies use Caffeine: Yes (1 c/day) How often does anyone, including family, friends and others, physically hurt you: never How often does anyone, including family, friends and others, insult or talk down to you: never How often does anyone, including family, friends and others, threaten you with harm: never How often does anyone, including family, friends and others, scream or curse at you: never Little interest or pleasure in doing things: more than half the days Feeling down, depressed, or hopeless: several days service: No Exam Narrative: Exam Narrative: Well-nourished well-developed patient mild distress. Alert and oriented x3. Answers questions appropriately. Mood and affect are appropriate. Thoughts are goal oriented and rational. No tangential or magical thinking noted. Patient speaks in full sentences without needing to catch her breath. HEENT: Normocephalic atraumatic. Pupils are equally round reactive to light. Extraocular muscles are intact. Conjunctivae are moist without any icterus noted. Moist mucous membranes. Posterior pharynx is normal. Neck is soft. Cardiovascular: Heart is regular rate and rhythm. Lungs: Clear to auscultation bilaterally. Abdomen: Soft and nontender nondistended with normal bowel sounds. Extremities: Bilateral lower extremities are without edema. Normal DP and PT pulses. Skin: Well perfused without any obvious rashes. Back: Normal appearance. She has some tenderness in the left buttock area. No tenderness down the thoracic or lumbar spine. Strength is 5/5 of the upper and lower extremities. Reflexes are 2+ and symmetric at the knees. Cranial nerves 3-12 are normal. Gait is labor but patient is able to walk without any footdrop. She has no weakness at the ankles bilaterally. Const: Vital Signs, click to edit/add: Vital Signs - 24 hr 11/13/23 17:00 Temperature 98 F Pulse Rate [Pulse Oximeter] 94 Respiratory Rate 20 Blood Pressure [Ri ght Upper Arm] 136/71 Pulse Oximetry 99 Oxygen Delivery Me thod Room Air Course Course ED Course: Given the intensity in the acuteness of her low back pain we did go ahead and do a x-ray which read by me, did not show any acute abnormalities. Radiologic over-read pending at this time. She received 1 dose of oral [place] while she was here. Vital Signs Vital signs: Initial Vital Signs Temperature 98 F 11/13/23 17:00 Temperature Source Temporal Artery Scan 11/13/23 17:00 Pulse Rate 94 11/13/23 17:00 Respiratory Rate 20 11/13/23 17:00 Blood Pressure 136/71 11/13/23 17:00 Blood Pressure Mean 92 11/13/23 17:00 Blood Pressure Position Supine 11/13/23 17:00 Pulse Oximetry 99 11/13/23 17:00 Oxygen Delivery Method Room Air 11/13/23 17:00 Vital Signs Temperature 98 F 11/13/23 17:00 Pulse Rate 94 11/13/23 17:00 Respiratory Rate 20 11/13/23 17:00 Blood Pressure 136/71 11/13/23 17:00 Pulse Oximetry 99 11/13/23 17:00 Oxygen Delivery Method Room Air 11/13/23 17:00 Temperature 98 F 11/13/23 17:00 Pulse Rate 94 11/13/23 17:00 Respiratory Rate 20 11/13/23 17:00 Blood Pressure 136/71 11/13/23 17:00 Pulse Oximetry 99 11/13/23 17:00 Oxygen Delivery Method Room Air 11/13/23 17:00 Medical Decision Making MDM Narrative Medical decision making narrative: 43-year-old female low back pain and radiculopathy. Given the acuteness of her pain would consider a disc herniation. At this time we will treat with [place], steroids. Patient will follow-up with her primary care next week to discuss physical therapy and continued management. Discharge Plan Discharge Clinical Impression: Low back pain potentially associated with radiculopathy Patient Disposition: Home, Self-Care Condition: Stable Additional Instructions: Take all steroids as prescribed. Take pain medication as needed. He will need to follow-up with your primary care provider this coming week to discuss physical therapy and pain management going forward. If you lose control of bowel or bladder function or develop a fever then you should return to the emergency department. Ten tablets of [place] sent to [facility]. Prednisone sent to pharmacy. Prescriptions: New prednisone 20 mg tablet 20 mg PO DIRECTED 9 Days Qty: 18 0RF Rx Instructions: 60 mg p.o. daily for 3 days (3 tablets daily on day 1-3), 40 mg daily for 3 days (2 tablets daily on days 4-6), 20 mg daily for 3 days (1 tablet daily on days 7-9). No Action Nurtec ODT 75 mg tablet,disintegrating 75 mg PO DAILY PRN Patient Comments: TAKE 1 TABLET BY MOUTH AT ONSET OF MIGRAINE. MAX DOSE OF 1 TABLET PER DAY triamcinolone acetonide 0.1 % cream 1 applic topical BID Qty: 30 1RF Rx Instructions: Apply topically to affected area twice daily as needed bupropion HCl 300 mg tablet extended release 24 hr 450 mg PO QAM albuterol sulfate 90 mcg/actuation HFA aerosol inhaler 2 puff inhalation Q6H PRN (Reason: shortness of breath or wheezing) Qty: 8.5 3RF venlafaxine 75 mg capsule,extended release 24hr 75 mg PO DAILY Rx Instructions: Take along with Venlafaxine 150 mg capsule for a total of 225 mg venlafaxine 150 mg capsule,extended release 24hr 150 mg PO DAILY Rx Instructions: Take along with 75 mg capsule for a total of 225 mg alprazolam 0.25 mg tablet 0.25 mg PO DAILY PRN (Reason: anxiety) ibuprofen 600 mg Tablet 600 mg PO Q6H Qty: 0 0RF topiramate 25 mg tablet 100 mg PO BID Patient Comments: total of 100mg twice daily. nortriptyline 10 mg capsule 10 mg PO HS Linzess 145 mcg capsule 145 mcg PO QAM Follow Up/Referrals: Donnie Flores PA-C [Primary Care Provider] - Stand Alone Forms: [facility] Info Instructions
== END 2023-11-13 18:39 | disposition home or self-care (01) ==
PROVIDERS: Emergency Provider Family Medicine; PCP Physician Assistant Medical
DX: M54.50 Low back pain, unspecified (principal)
CPT/HCPCS: 72100; 99283; 99284

== ENCOUNTER 2023-12-27 13:52 | Outpatient (CLI) | payer BC, SELFPAY ==
--- NOTE | 2023-12-27 14:00 | CRLHL7_ITS ---
For Patients: As a result of the Century Cures Act, medical imaging exams and procedure reports are released immediately into your electronic medical record. You may view this report before your referring provider. If you have questions, please contact your health care provider. BILATERAL SCREENING MAMMOGRAM WITH COMPUTER-AIDED DETECTION AND TOMOSYNTHESIS TECHNIQUE: CC and MLO views were obtained. These mammographic images have been obtained using full-field digital technique. These mammographic images were interpreted with the benefit of computer-aided detection. Breast Tomosynthesis was used in this interpretation. COMPARISON FILM: 12/01/21. FINDINGS: The breasts are heterogeneously dense, which may obscure small masses. IMPRESSION: There is no radiographic evidence for malignancy. ASSESSMENT: BI-RADS Category 1: Negative RECOMMENDATION: Routine screening mammogram in 1 year. A lay language report of this examination will be provided to the patient. Tomi Lee M.D. Diagnostic Radiologist [email or web address] SP/Dictated by: Tomi Lee MD @ 12/29/2023 12:01:00 PM (Electronically Signed)
== END 2023-12-27 13:53 | disposition home or self-care (01) ==
LOC: MAMMO 13:53
PROVIDERS: PCP Physician Assistant Medical; Visit Provider Physician Assistant Medical
DX: Z12.31 Encounter for screening mammogram for malignant neoplasm of breast (principal); R92.2 Inconclusive mammogram
CPT/HCPCS: 77063; 77067

== ENCOUNTER 2025-02-04 08:38 | Outpatient (CLI) | payer BC, SELFPAY ==
[2025-02-04 09:20] LABS: PCR FLU A Negative PCR FLU A (Negative); PCR FLU B Negative PCR FLU B (Negative); SARS PCR* Negative SARS-CoV-2 (Negative)
== END 2025-02-04 08:39 | disposition home or self-care (01) ==
LOC: FRMREF 08:38
PROVIDERS: PCP Physician Assistant Medical; Visit Provider Physician Assistant Medical
DX: R06.02 Shortness of breath (principal); R05.9 Cough, unspecified
CPT/HCPCS: 87636